=== PATIENT | male | born 1985 | race Two or more races ===

== ENCOUNTER 2016-11-11 00:25 | Emergency (ER) | payer SELFPAY ==
[~2016-11-11] VITALS: Ht 177.8 cm; Wt 81.6 kg
[2016-11-11] MEDS ORDERED: IBUPROFEN600 MG ORAL (01:00)
--- NOTE | 2016-11-11 01:01 | Emergency Room Report ---
History of Present Illness General Chief Complaint: Pain Source: Patient Present Illness HPI Is a 31-year-old male who is right-hand dominant. He presents via police custody with complaint of right wrist and right forearm pain. Onset was tonight. He was being arrested and was handcuffed. He said the handcuff was too tight and officer was too rough on him. He complaining of distal right forearm tenderness. No other trauma. No fever or chills. Pain is 8/10. Worse with movement. Patient History Past Medical History: see triage record, old chart reviewed Past Surgical History: none Pertinent Family History: none Social History: Denies: drug use Immunizations: other Reviewed Nursing Documentation: PMH: Agreed, PSxH: Agreed Review of Systems Eye: Denies: blurred vision, eye pain ENT: Denies: ear pain, nose congestion, throat swelling Respiratory: Denies: cough, shortness of breath Cardiovascular: Denies: chest pain, palpitations Gastrointestinal: Denies: abdominal pain, diarrhea, nausea, vomiting Musculoskeletal: Reports: muscle pain, Denies: back pain, joint pain Skin: Denies: rash Neurological: Denies: headache, numbness Endocrine: Denies: increased thirst, increased urine Hematologic/Lymphatic: Denies: easy bruising All Other Systems: negative except mentioned in HPI Physical Exam Vital Signs Date Time Temp Pulse Resp B/P Pulse Ox O2 Delivery O2 Flow Rate FiO2 11/11/16 00:43 98.2 88 16 154/88 98 Room Air vitals with hypertension Sp02 EP Interpretation: reviewed, normal General Appearance: well appearing, no apparent distress, alert Head: normocephalic, atraumatic Eyes: bilateral eye EOMI, bilateral eye PERRL ENT: hearing grossly normal, normal pharynx Neck: full range of motion, supple, no meningismus Respiratory: chest non-tender, lungs clear, normal breath sounds Cardiovascular #1: regular rate, rhythm, no murmur Gastrointestinal: normal bowel sounds, non tender, no mass, no organomegaly, no bruit, non-distended Musculoskeletal: back normal, gait/station normal, normal range of motion, other - rt forearm: TTP over distal radius. No deformity. Mild edema over STS. Psychiatric: mood/affect normal Skin: warm/dry Medical Decision Making Diagnostic Impression: Primary Impression: Contusion of forearm, right ER Course Patient presents with soft tissue tenderness over the distal forearm/radius. No bony abnormality. Based on clinical exam I see no need for x-rays. This is from the cuff being placed on him. Last Vital Signs Date Time Temp Pulse Resp B/P Pulse Ox O2 Delivery O2 Flow Rate FiO2 11/11/16 00:43 98.2 88 16 154/88 98 Room Air Status: improved Disposition: HOME, SELF-CARE Condition: Stable Scripts Ibuprofen* (MOTRIN*) 600 Mg Tablet 600 MG ORAL Q8H Y for For Pain, #30 TAB 0 Refills Prov: WILNER PINON M.D. 11/11/16 Additional Instructions: Follow up with your doctor in 7days. return if worse. WILNER PINON M.D. November 11, 2016 01:01
[2016-11-11 01:10] VITALS: BP 154/88
== END 2016-11-11 01:10 | disposition home or self-care (01) ==
LOC: EMR 00:38
DX: S50.11XA Contusion of right forearm, initial encounter (principal); Y35.813A Legal intervention involving manhandling, suspect injured, initial encounter; Y93.9 Activity, unspecified; Y92.9 Unspecified place or not applicable
CPT/HCPCS: 99283